=== PATIENT | female | born 1965 ===

== ENCOUNTER 2017-08-12 09:49 | Day surgery (SDC) | payer OTHER ==
[2017-08-12 10:20] VITALS: BMI 25.4
[2017-08-12 11:05] VITALS: O2SAT 100
[2017-08-12] MEDS ORDERED: Lactated Ringer's 1,000 ML IV ONE ×2 (11:42)
[2017-08-12] MEDS ORDERED: Lidocaine Hydrochloride 5 ML INJ ONE (12:14)
[2017-08-12] MEDS ORDERED: Propofol 10 mg/ml Inj (20 ML) ONE (12:14)
[2017-08-12 14:24] VITALS: BP 128/71; PULSE 63; RESP 18; TEMP 96.9
== END 2017-08-12 13:35 | disposition home or self-care (01) ==
LOC: C.ENDO 09:49
PROVIDERS: ATTEND Internal Medicine Gastroenterology
DX: R10.13 Epigastric pain (principal); B96.81 Helicobacter pylori [H. pylori] as the cause of diseases classified elsewhere; K29.70 Gastritis, unspecified, without bleeding; Z98.84 Bariatric surgery status; I10 Essential (primary) hypertension; E03.9 Hypothyroidism, unspecified; Z79.899 Other long term (current) drug therapy
CPT/HCPCS: 43239; 84703; 88305; J2704; J7120

== ENCOUNTER 2018-08-05 10:27 | Outpatient (CLI) | payer BC | END 2018-08-05 10:28 | disposition home or self-care (01) | LOC: C.MAMMO 10:28 ==